=== PATIENT | male | born 2000 | race African-American/Black ===

== ENCOUNTER 2024-11-12 11:19 | Inpatient (IN) | payer OTHER, SELFPAY ==
[~2024-11-12] VITALS: Ht 172.7 cm; Wt 70.9 kg
[2024-11-12] MEDS ORDERED: LORazepam 2 MG/ML 1ML VIAL As Ordered ONE (11:25)
[2024-11-12] MEDS: LORazepam 2 MG/ML 1ML VIAL IV STA (11:26)
[2024-11-12] MEDS: NS (Normal Saline) 0.9% 1,000 ML IV ONE ×2 (11:33→12:54)
[2024-11-12] MEDS: levETIRAcetam INJection 1,000 MG in D5W 100 ML IV ONE (11:33)
[2024-11-12 11:58] LABS: BASO # 0.1 10^3/uL (0.0-0.2); BASO % 0.5 % (0.0-1.0); EOS # 0.2 10^3/uL (0.0-0.5); EOS % 0.9 % (0.0-3.0); LYMPH # 5.6 10^3/uL (1.5-5.0); LYMPH % 29.1 % (24.0-44.0); MEAN CORPUSCULAR HEMOGLOBIN 30.7 pg (27.0-33.0); MEAN CORPUSCULAR VOLUME 102.5 fl (80.0-96.0); MONO # 1.4 10^3/uL (0.0-0.8); MONO % 7.5 % (2.0-8.0); NEUTROPHILS # 11.1 10^3/uL (1.5-8.5); NEUTROPHILS % 58.3 % (36.0-66.0); PLATELET COUNT, AUTOMATED 261 10^3/uL (150-450); RED BLOOD COUNT 4.88 10^6/uL (4.30-6.10); WHITE BLOOD COUNT 19.1 10^3/uL (4.0-10.0)
[2024-11-12 11:58] LABS: ABG STANDARD HCO3 6.9 MMOL/L. (22.0-26.0)
[2024-11-12 11:59] LABS: ABG BASE EXCESS -25.7 (-2.0-2.0); ABG HCO3 6.5 MMOL/L (22.0-26.0); ABG O2 SATURATION 98.9 % (95.0-99.0); ABG PARTIAL PRESSURE CO2 33.9 mmHg (35.0-45.0); ABG PARTIAL PRESSURE O2 232.1 mmHg (75.0-100.0); ABG TOTAL CO2 7.6 MMOL/L (22.0-29.0)
[2024-11-12 12:00] LABS: ABG pH (ARTERIAL) 6.903 UNITS (7.350-7.450)
[2024-11-12 12:12] LABS: ALBUMIN 4.4 G/DL (3.2-5.2); ALKALINE PHOSPHATASE 127 U/L (40-129); ALT/SGPT 12 U/L (7.0-40); AST/SGOT 20 U/L (<34); BILIRUBIN,DIRECT < 0.1 MG/DL (<0.4); BILIRUBIN,TOTAL 0.2 MG/DL (0.3-1.2); BLOOD UREA NITROGEN 15 MG/DL (9-23); CALCIUM LEVEL 10.9 MG/DL (8.5-10.1); CARBON DIOXIDE LEVEL 13 MMOL/L (20-31); CHLORIDE LEVEL 111 MMOL/L (98-107); GLOMERULAR FILTRATION RATE 55.9 (>60); GLUCOSE, FASTING 147 MG/DL (60-100); POTASSIUM SERUM 5.3 MMOL/L (3.5-5.1); SODIUM LEVEL 155 MMOL/L (136-145); TOTAL PROTEIN 8.9 G/DL (5.7-8.2)
[2024-11-12 13:33] LABS: ABG BASE EXCESS -4.5 (-2.0-2.0); ABG HCO3 21.9 MMOL/L (22.0-26.0); ABG O2 SATURATION 97.7 % (95.0-99.0); ABG PARTIAL PRESSURE CO2 45.4 mmHg (35.0-45.0); ABG STANDARD HCO3 20.8 MMOL/L. (22.0-26.0); ABG TOTAL CO2 23.3 MMOL/L (22.0-29.0); ABG pH (ARTERIAL) 7.301 UNITS (7.350-7.450)
[2024-11-12] MEDS ORDERED: ALBUTEROL SULFATE 2.5MG/0.5ML INH NEB SOLN NEB PRN (13:40)
[2024-11-12 13:54] LABS: VENOUS BASE EXCESS -4.8 (-2.0-2.0); VENOUS HCO3 23.5 MMOL/L (23.0-27.0); VENOUS O2 SATURATION 66.4 % (60.0-80.0); VENOUS PARTIAL PRESSURE CO2 57.1 mmHg (38.0-50.0); VENOUS PARTIAL PRESSURE O2 38.4 mmHg (30.0-50.0); VENOUS PH 7.232 UNITS (7.330-7.430); VENOUS STANDARD HCO3 19.9 MMOL/L; VENOUS TOTAL CO2 25.2 MMOL/L (24.0-28.0)
[2024-11-12] MEDS ORDERED: KEPP1SOL PO (14:13)
[2024-11-12] MEDS ORDERED: HOME MED LIST COMPLETE! XX SCH (14:15)
[2024-11-12] MEDS: ACETAMINOPHEN *IV* 1,000 MG in IV 1 EA IV PRN (14:45)
[2024-11-12 15:02] LABS: PROLACTIN 19.36 NG/ML (2.1-17.7)
[2024-11-12 15:52] LABS: BLOOD UREA NITROGEN 16 MG/DL (9-23); CALCIUM LEVEL 8.2 MG/DL (8.5-10.1); CARBON DIOXIDE LEVEL 24 MMOL/L (20-31); CHLORIDE LEVEL 111 MMOL/L (98-107); CREATININE FOR GFR 1.26 MG/DL (0.70-1.30); GLOMERULAR FILTRATION RATE > 60.0 (>60); GLUCOSE, FASTING 87 MG/DL (60-100); POTASSIUM SERUM 4.4 MMOL/L (3.5-5.1); SODIUM LEVEL 144 MMOL/L (136-145)
[2024-11-12 16:30] VITALS: BP 114/65; TEMP 99.1; O2SAT 100
[2024-11-12 16:54] VITALS: BP 122/76; O2SAT 100
[2024-11-12 20:00] VITALS: BP 123/56; TEMP 99.1; O2SAT 92
[2024-11-12 20:04] VITALS: O2SAT 85
[2024-11-12] MEDS ORDERED: HEPARIN SOD (PORCINE) 5000UNITS/ML 1ML VIAL/SYRINGE SC SCH (22:00)
[2024-11-12] MEDS ORDERED: levETIRAcetam INJection 1,000 MG in D5W 100 ML IV SCH (23:00)
== END 2024-11-12 22:20 | disposition left against medical advice (07) | DRG 53 ==
LOC: M ED 11:19 → EDBD 11:19 → M ED INP 13:38 → M ICU 16:47
PROVIDERS: ADMIT Internal Medicine Pulmonary Disease; ATTEND Internal Medicine Pulmonary Disease
DX: G40.401 Other generalized epilepsy and epileptic syndromes, not intractable, with status epilepticus (principal); G93.41 Metabolic encephalopathy; N17.9 Acute kidney failure, unspecified; E87.20 Acidosis, unspecified; E87.0 Hyperosmolality and hypernatremia; E87.5 Hyperkalemia; Z91.148 Patient's other noncompliance with medication regimen for other reason; F12.90 Cannabis use, unspecified, uncomplicated; F17.210 Nicotine dependence, cigarettes, uncomplicated

== ENCOUNTER 2024-12-09 14:57 | Emergency (ER) | payer MEDICAID, OTHER, SELFPAY ==
[~2024-12-09] VITALS: Ht 175.3 cm; Wt 67.9 kg
[~2024-12-09 14:57] MED LIST: KEPP1SOL PO
[2024-12-09 15:27] LABS: VENOUS BASE EXCESS -26.8 (-2.0-2.0); VENOUS HCO3 8.8 MMOL/L (23.0-27.0); VENOUS O2 SATURATION 69.9 % (60.0-80.0); VENOUS PARTIAL PRESSURE CO2 59.3 mmHg (38.0-50.0); VENOUS PH 6.789 UNITS (7.330-7.430); VENOUS STANDARD HCO3 6.5 MMOL/L; VENOUS TOTAL CO2 10.6 MMOL/L (24.0-28.0)
[2024-12-09 15:37] LABS: BASO % 0.2 % (0.0-1.0); EOS # 0.1 10^3/uL (0.0-0.5); EOS % 0.3 % (0.0-3.0); HEMATOCRIT 47.7 % (42.0-52.0); HEMOGLOBIN 14.3 g/dl (13.5-17.5); LYMPH # 4.1 10^3/uL (1.5-5.0); LYMPH % 24.3 % (24.0-44.0); MONO # 1.2 10^3/uL (0.0-0.8); MONO % 7.2 % (2.0-8.0); NEUTROPHILS # 11.2 10^3/uL (1.5-8.5); NEUTROPHILS % 66.9 % (36.0-66.0); PLATELET COUNT, AUTOMATED 183 10^3/uL (150-450); RED BLOOD COUNT 4.77 10^6/uL (4.30-6.10); WHITE BLOOD COUNT 16.8 10^3/uL (4.0-10.0)
[2024-12-09] MEDS: levETIRAcetam INJection 1,500 MG in D5W 100 ML IV ONE (15:40)
[2024-12-09] MEDS ORDERED: LORazepam 2 MG/ML 1ML VIAL IV PRN (15:45)
[2024-12-09 15:57] LABS: AMPHETAMINES LEVEL URINE NEGATIVE (NEGATIVE); BARBITURATES URINE NEGATIVE (NEGATIVE); BENZODIAZEPINES URINE NEGATIVE (NEGATIVE); COCAINE METABOLITE URINE NEGATIVE (NEGATIVE); METHADONE URINE NEGATIVE (NEGATIVE); OPIATES URINE NEGATIVE (NEGATIVE); PHENCYCLIDINE URINE NEGATIVE (NEGATIVE)
[2024-12-09] MEDS: NS (Normal Saline) 0.9% 1,000 ML IV ONE (15:57)
[2024-12-09 15:58] LABS: ETHYL ALCOHOL (ETHANOL) 0.007 % (0.000-0.010)
[2024-12-09 16:00] LABS: CANNABINOIDS URINE POSITIVE (NEGATIVE)
[2024-12-09 16:04] LABS: ALBUMIN 4.2 G/DL (3.2-5.2); ALKALINE PHOSPHATASE 106 U/L (40-129); ALT/SGPT 11 U/L (7.0-40); AST/SGOT 14 U/L (<34); BILIRUBIN,DIRECT 0.1 MG/DL (<0.4); BILIRUBIN,TOTAL 0.4 MG/DL (0.3-1.2); BLOOD UREA NITROGEN 16 MG/DL (9-23); CALCIUM LEVEL 9.4 MG/DL (8.5-10.1); CARBON DIOXIDE LEVEL 12 MMOL/L (20-31); CHLORIDE LEVEL 105 MMOL/L (98-107); CREATININE FOR GFR 1.25 MG/DL (0.70-1.30); GLOMERULAR FILTRATION RATE > 60.0 (>60); GLUCOSE, FASTING 112 MG/DL (60-100); MAGNESIUM LEVEL 2.4 MG/DL (1.8-2.4); PHOSPHORUS LEVEL 3.3 MG/DL (2.5-4.9); POTASSIUM SERUM 4.3 MMOL/L (3.5-5.1); SODIUM LEVEL 145 MMOL/L (136-145); TOTAL PROTEIN 8.8 G/DL (5.7-8.2)
[2024-12-09] MEDS: NS (Normal Saline) 0.9% 1,000 ML in IV 1 EA IV ONE (16:20)
[2024-12-09] MEDS ORDERED: LEVE15SO PO (18:14)
[2024-12-09 18:29] LABS: VENOUS HCO3 22.5 MMOL/L (23.0-27.0); VENOUS O2 SATURATION 80.3 % (60.0-80.0); VENOUS PARTIAL PRESSURE CO2 46.5 mmHg (38.0-50.0); VENOUS PARTIAL PRESSURE O2 46.7 mmHg (30.0-50.0); VENOUS PH 7.303 UNITS (7.330-7.430); VENOUS STANDARD HCO3 20.8 MMOL/L; VENOUS TOTAL CO2 23.9 MMOL/L (24.0-28.0)
[2024-12-09] MEDS ORDERED: KEPP1TAB2 PO (19:17)
[2024-12-09 19:34] VITALS: BP 118/69; TEMP 97.9; O2SAT 100
== END 2024-12-09 19:35 | disposition left against medical advice (07) ==
LOC: M ED 14:57 → EDBD 14:57 → M ED 19:35
DX: G40.909 Epilepsy, unspecified, not intractable, without status epilepticus (principal); F12.10 Cannabis abuse, uncomplicated; F17.290 Nicotine dependence, other tobacco product, uncomplicated; Z79.899 Other long term (current) drug therapy; Z53.9 Procedure and treatment not carried out, unspecified reason
CPT/HCPCS: 80048; 80076; 80177; 80307; 82077; 82803; 83605; 83735; 84100; 85025; 93041; 94760; 96365; 96366; 99285; J1953

== ENCOUNTER 2024-12-11 02:30 | Emergency (ER) | payer MEDICAID, OTHER ==
[~2024-12-11] VITALS: Ht 175.3 cm; Wt 67.9 kg
[~2024-12-11 02:30] MED LIST changes: +KEPP1TAB2 PO; +LEVE15SO PO
[2024-12-11 03:20] LABS: BASO % 0.4 % (0.0-1.0); EOS # 0.1 10^3/uL (0.0-0.5); EOS % 2.8 % (0.0-3.0); HEMATOCRIT 38.7 % (42.0-52.0); HEMOGLOBIN 12.5 g/dl (13.5-17.5); LYMPH # 1.7 10^3/uL (1.5-5.0); LYMPH % 36.3 % (24.0-44.0); MEAN CORPUSCULAR HEMOGLOBIN 29.9 pg (27.0-33.0); MEAN CORPUSCULAR HGB CONC 32.3 g/dl (32.0-36.5); MEAN CORPUSCULAR VOLUME 92.6 fl (80.0-96.0); MONO # 0.6 10^3/uL (0.0-0.8); MONO % 12.6 % (2.0-8.0); NEUTROPHILS # 2.2 10^3/uL (1.5-8.5); NEUTROPHILS % 47.5 % (36.0-66.0); PLATELET COUNT, AUTOMATED 133 10^3/uL (150-450); RED BLOOD COUNT 4.18 10^6/uL (4.30-6.10); WHITE BLOOD COUNT 4.7 10^3/uL (4.0-10.0)
[2024-12-11 03:30] LABS: BLOOD UREA NITROGEN 13 MG/DL (9-23); CALCIUM LEVEL 8.7 MG/DL (8.5-10.1); CARBON DIOXIDE LEVEL 28 MMOL/L (20-31); CHLORIDE LEVEL 106 MMOL/L (98-107); CK-MB VALUE MASS < 1.0 NG/ML (<3.6); CREATININE FOR GFR 1.16 MG/DL (0.70-1.30); GLOMERULAR FILTRATION RATE > 60.0 (>60); GLUCOSE, FASTING 97 MG/DL (60-100); POTASSIUM SERUM 3.9 MMOL/L (3.5-5.1); SODIUM LEVEL 144 MMOL/L (136-145)
[2024-12-11 03:31] LABS: CPK CREATINE PHOSPHOKINASE 416 U/L (46-171); MB/CK RELATIVE INDEX 0.24 (< OR =4)
[2024-12-11] MEDS ORDERED: levETIRAcetam INJection 1,000 MG in IV 1 EA IV ONE (07:30)
[2024-12-11] MEDS: levETIRAcetam INJection 500 MG in DEXTROSE 5% (D5W) MINI-BAG PLU 100 ML IV SCH (08:02)
[2024-12-11 08:33] LABS: CK-MB VALUE MASS < 1.0 NG/ML (<3.6)
[2024-12-11 08:34] LABS: CPK CREATINE PHOSPHOKINASE 396 U/L (46-171); MB/CK RELATIVE INDEX 0.25 (< OR =4)
[2024-12-11 09:09] LABS: AMPHETAMINES LEVEL URINE NEGATIVE (NEGATIVE); BARBITURATES URINE NEGATIVE (NEGATIVE); BENZODIAZEPINES URINE NEGATIVE (NEGATIVE); COCAINE METABOLITE URINE NEGATIVE (NEGATIVE); METHADONE URINE NEGATIVE (NEGATIVE); OPIATES URINE NEGATIVE (NEGATIVE); PHENCYCLIDINE URINE NEGATIVE (NEGATIVE)
[2024-12-11 09:10] LABS: CANNABINOIDS URINE POSITIVE (NEGATIVE)
[2024-12-11] MEDS ORDERED: KEPP1TAB2 PO (10:10)
[2024-12-11 11:00] VITALS: BP 119/75; TEMP 98.1; O2SAT 100
== END 2024-12-11 12:04 | disposition home or self-care (01) ==
LOC: M ED 02:30 → EDBD 02:30 → M ED 12:04
DX: R07.9 Chest pain, unspecified (principal); G40.909 Epilepsy, unspecified, not intractable, without status epilepticus; I45.10 Unspecified right bundle-branch block; F41.9 Anxiety disorder, unspecified; F19.10 Other psychoactive substance abuse, uncomplicated; Z79.899 Other long term (current) drug therapy
CPT/HCPCS: 71045; 80048; 80177; 80307; 82550; 82553; 83605; 84484; 85025; 93005; 93041; 94760; 96360; 99285; J1953

== ENCOUNTER 2024-12-20 18:53 | Emergency (ER) | payer OTHER, SELFPAY ==
[~2024-12-20] VITALS: Ht 185.4 cm; Wt 60.9 kg
[2024-12-20 20:01] LABS: HEMATOCRIT 43.4 % (42.0-52.0); HEMOGLOBIN 14.7 g/dl (13.5-17.5); MEAN CORPUSCULAR HEMOGLOBIN 30.2 pg (27.0-33.0); MEAN CORPUSCULAR HGB CONC 33.9 g/dl (32.0-36.5); MEAN CORPUSCULAR VOLUME 89.3 fl (80.0-96.0); PLATELET COUNT, AUTOMATED 205 10^3/uL (150-450); RED BLOOD COUNT 4.86 10^6/uL (4.30-6.10); WHITE BLOOD COUNT 7.8 10^3/uL (4.0-10.0)
[2024-12-20 20:27] LABS: ETHYL ALCOHOL (ETHANOL) < 0.003 % (0.000-0.010)
[2024-12-20 20:28] LABS: SALICYLATE LEVEL < 3.0 MG/DL (<30)
[2024-12-20 20:29] LABS: ALBUMIN 4.5 G/DL (3.2-5.2); ALKALINE PHOSPHATASE 97 U/L (40-129); ALT/SGPT 16 U/L (7.0-40); AST/SGOT 25 U/L (<34); BILIRUBIN,DIRECT 0.3 MG/DL (<0.4); BILIRUBIN,TOTAL 0.8 MG/DL (0.3-1.2); BLOOD UREA NITROGEN 12 MG/DL (9-23); CALCIUM LEVEL 9.7 MG/DL (8.5-10.1); CARBON DIOXIDE LEVEL 28 MMOL/L (20-31); CHLORIDE LEVEL 103 MMOL/L (98-107); CREATININE FOR GFR 1.01 MG/DL (0.70-1.30); GLOMERULAR FILTRATION RATE > 60.0 (>60); GLUCOSE, FASTING 110 MG/DL (60-100); POTASSIUM SERUM 3.7 MMOL/L (3.5-5.1); SODIUM LEVEL 140 MMOL/L (136-145); TOTAL PROTEIN 8.7 G/DL (5.7-8.2)
[2024-12-20 20:30] LABS: THYROID STIMULATING HORMONE 0.865 uIU/ML (0.55-4.78)
[2024-12-20 20:36] LABS: AMPHETAMINES LEVEL URINE NEGATIVE (NEGATIVE); BARBITURATES URINE NEGATIVE (NEGATIVE); BENZODIAZEPINES URINE NEGATIVE (NEGATIVE); COCAINE METABOLITE URINE NEGATIVE (NEGATIVE); METHADONE URINE NEGATIVE (NEGATIVE); OPIATES URINE NEGATIVE (NEGATIVE); PHENCYCLIDINE URINE NEGATIVE (NEGATIVE)
[2024-12-20 20:40] LABS: CANNABINOIDS URINE POSITIVE (NEGATIVE)
[2024-12-20] MEDS ORDERED: levETIRAcetam 250MG TABLET (KEPPRA) PO ONE (21:05)
[2024-12-20] MEDS: levETIRAcetam ORAL SOLUTION 500MG/5ML UDC PO STA (21:41)
[2024-12-20 21:59] VITALS: BP 160/89; TEMP 97.7; O2SAT 100
== END 2024-12-20 22:10 | disposition home or self-care (01) ==
LOC: EDBD 18:53 → M ED 18:53
DX: F43.0 Acute stress reaction (principal); G40.909 Epilepsy, unspecified, not intractable, without status epilepticus; Z76.0 Encounter for issue of repeat prescription; F17.200 Nicotine dependence, unspecified, uncomplicated; Z91.148 Patient's other noncompliance with medication regimen for other reason; Z79.899 Other long term (current) drug therapy

== ENCOUNTER 2024-12-22 07:52 | Emergency (ER) | payer SELFPAY ==
[~2024-12-22] VITALS: Ht 172.7 cm; Wt 60.9 kg
[2024-12-22 09:17] LABS: HEMATOCRIT 41.4 % (42.0-52.0); HEMOGLOBIN 13.5 g/dl (13.5-17.5); MEAN CORPUSCULAR HEMOGLOBIN 29.7 pg (27.0-33.0); MEAN CORPUSCULAR HGB CONC 32.6 g/dl (32.0-36.5); PLATELET COUNT, AUTOMATED 203 10^3/uL (150-450); RED BLOOD COUNT 4.55 10^6/uL (4.30-6.10); WHITE BLOOD COUNT 7.9 10^3/uL (4.0-10.0)
[2024-12-22 09:24] LABS: AMPHETAMINES LEVEL URINE NEGATIVE (NEGATIVE); BARBITURATES URINE NEGATIVE (NEGATIVE); BENZODIAZEPINES URINE NEGATIVE (NEGATIVE); COCAINE METABOLITE URINE NEGATIVE (NEGATIVE); METHADONE URINE NEGATIVE (NEGATIVE); OPIATES URINE NEGATIVE (NEGATIVE); PHENCYCLIDINE URINE NEGATIVE (NEGATIVE)
[2024-12-22 09:27] LABS: ETHYL ALCOHOL (ETHANOL) < 0.003 % (0.000-0.010)
[2024-12-22 09:29] LABS: SALICYLATE LEVEL < 3.0 MG/DL (<30)
[2024-12-22 09:33] LABS: ALKALINE PHOSPHATASE 88 U/L (40-129); ALT/SGPT 13 U/L (7.0-40); AST/SGOT 24 U/L (<34); BILIRUBIN,DIRECT 0.3 MG/DL (<0.4); BILIRUBIN,TOTAL 0.8 MG/DL (0.3-1.2); BLOOD UREA NITROGEN 13 MG/DL (9-23); CALCIUM LEVEL 8.8 MG/DL (8.5-10.1); CANNABINOIDS URINE POSITIVE (NEGATIVE); CARBON DIOXIDE LEVEL 25 MMOL/L (20-31); CHLORIDE LEVEL 108 MMOL/L (98-107); CREATININE FOR GFR 1.03 MG/DL (0.70-1.30); GLOMERULAR FILTRATION RATE > 60.0 (>60); GLUCOSE, FASTING 102 MG/DL (60-100); POTASSIUM SERUM 3.9 MMOL/L (3.5-5.1); SODIUM LEVEL 143 MMOL/L (136-145); THYROID STIMULATING HORMONE 0.423 uIU/ML (0.55-4.78); TOTAL PROTEIN 7.7 G/DL (5.7-8.2)
[2024-12-22 14:08] VITALS: BP 135/80; TEMP 98; O2SAT 99
== END 2024-12-22 14:10 | disposition home or self-care (01) ==
LOC: EDBD 07:52 → M ED 07:52
DX: F43.22 Adjustment disorder with anxiety (principal); G40.909 Epilepsy, unspecified, not intractable, without status epilepticus; F17.200 Nicotine dependence, unspecified, uncomplicated; Z79.899 Other long term (current) drug therapy

== ENCOUNTER 2025-02-04 10:13 | Emergency (ER) | payer MEDICAID, SELFPAY ==
[~2025-02-04] VITALS: Ht 177.8 cm; Wt 74.2 kg
[2025-02-04 11:22] LABS: AMPHETAMINES LEVEL URINE NEGATIVE (NEGATIVE); BARBITURATES URINE NEGATIVE (NEGATIVE); BENZODIAZEPINES URINE NEGATIVE (NEGATIVE); COCAINE METABOLITE URINE NEGATIVE (NEGATIVE); METHADONE URINE NEGATIVE (NEGATIVE); PHENCYCLIDINE URINE NEGATIVE (NEGATIVE)
[2025-02-04] MEDS: NS (Normal Saline) 0.9% 1,000 ML IV ONE ×2 (11:22→13:54)
[2025-02-04 11:23] LABS: OPIATES URINE NEGATIVE (NEGATIVE)
[2025-02-04 11:24] LABS: CANNABINOIDS URINE POSITIVE (NEGATIVE)
[2025-02-04 16:30] VITALS: BP 118/61; O2SAT 95
[2025-02-04 16:44] VITALS: TEMP 97.7
== END 2025-02-04 17:00 | disposition home or self-care (01) ==
LOC: M ED 10:13
DX: G40.909 Epilepsy, unspecified, not intractable, without status epilepticus (principal); R00.0 Tachycardia, unspecified; I45.10 Unspecified right bundle-branch block; Z79.899 Other long term (current) drug therapy

== ENCOUNTER 2025-02-04 17:32 | Emergency (ER) | payer MEDICAID, SELFPAY ==
[~2025-02-04] VITALS: Ht 177.8 cm; Wt 74.2 kg
[2025-02-04 17:44] VITALS: TEMP 100.2
[2025-02-04] MEDS: levETIRAcetam INJection 1,000 MG in IV 1 EA IV ONE (17:59)
[2025-02-04 18:15] LABS: BASO % 0.2 % (0.0-1.0); EOS % 0.1 % (0.0-3.0); HEMATOCRIT 40.2 % (42.0-52.0); LYMPH % 6.1 % (24.0-44.0); MEAN CORPUSCULAR HEMOGLOBIN 29.3 pg (27.0-33.0); MEAN CORPUSCULAR HGB CONC 32.3 g/dl (32.0-36.5); MEAN CORPUSCULAR VOLUME 90.7 fl (80.0-96.0); MONO # 1.5 10^3/uL (0.0-0.8); MONO % 9.6 % (2.0-8.0); NEUTROPHILS # 13.2 10^3/uL (1.5-8.5); NEUTROPHILS % 82.9 % (36.0-66.0); PLATELET COUNT, AUTOMATED 157 10^3/uL (150-450); RED BLOOD COUNT 4.43 10^6/uL (4.30-6.10)
[2025-02-04 18:29] LABS: ALBUMIN 3.9 G/DL (3.2-5.2); BILIRUBIN,TOTAL 0.7 MG/DL (0.3-1.2); CALCIUM LEVEL 8.4 MG/DL (8.5-10.1); CREATININE FOR GFR 1.88 MG/DL (0.70-1.30); GLOMERULAR FILTRATION RATE 56.2 (>60); POTASSIUM SERUM 5.5 MMOL/L (3.5-5.1); TOTAL PROTEIN 7.8 G/DL (5.7-8.2)
[2025-02-04 18:31] VITALS: BP 117/65; O2SAT 98
== END 2025-02-04 18:49 | disposition left against medical advice (07) ==
LOC: M ED 17:32
DX: G40.909 Epilepsy, unspecified, not intractable, without status epilepticus (principal); Z79.899 Other long term (current) drug therapy; Z53.9 Procedure and treatment not carried out, unspecified reason
CPT/HCPCS: 36415; 70450; 80047; 80053; 80177; 80307; 85025; 87486; 87581; 87633; 87798; 93005; 96365; 99284; 99285; J1953

== ENCOUNTER 2025-03-02 00:23 | Emergency (ER) | payer MEDICAID, OTHER ==
[~2025-03-02] VITALS: Ht 185.4 cm; Wt 64.0 kg
[2025-03-02 01:43] LABS: HEMATOCRIT 40.4 % (42.0-52.0); HEMOGLOBIN 13.2 g/dl (13.5-17.5); MEAN CORPUSCULAR HEMOGLOBIN 29.5 pg (27.0-33.0); MEAN CORPUSCULAR HGB CONC 32.7 g/dl (32.0-36.5); MEAN CORPUSCULAR VOLUME 90.4 fl (80.0-96.0); PLATELET COUNT, AUTOMATED 185 10^3/uL (150-450); RED BLOOD COUNT 4.47 10^6/uL (4.30-6.10); WHITE BLOOD COUNT 5.4 10^3/uL (4.0-10.0)
[2025-03-02 01:47] LABS: AMPHETAMINES LEVEL URINE NEGATIVE (NEGATIVE); BARBITURATES URINE NEGATIVE (NEGATIVE); BENZODIAZEPINES URINE NEGATIVE (NEGATIVE); COCAINE METABOLITE URINE NEGATIVE (NEGATIVE); METHADONE URINE NEGATIVE (NEGATIVE); OPIATES URINE NEGATIVE (NEGATIVE); PHENCYCLIDINE URINE NEGATIVE (NEGATIVE)
[2025-03-02 01:49] LABS: ETHYL ALCOHOL (ETHANOL) < 0.003 % (0.000-0.010)
[2025-03-02 01:51] LABS: ALBUMIN 3.7 G/DL (3.2-5.2); ALKALINE PHOSPHATASE 84 U/L (40-129); ALT/SGPT 10 U/L (7.0-40); AST/SGOT 15 U/L (<34); BILIRUBIN,DIRECT 0.2 MG/DL (<0.4); BILIRUBIN,TOTAL 0.6 MG/DL (0.3-1.2); BLOOD UREA NITROGEN 17 MG/DL (9-23); CALCIUM LEVEL 8.5 MG/DL (8.5-10.1); CANNABINOIDS URINE POSITIVE (NEGATIVE); CARBON DIOXIDE LEVEL 29 MMOL/L (20-31); CHLORIDE LEVEL 106 MMOL/L (98-107); CREATININE FOR GFR 1.09 MG/DL (0.70-1.30); GLOMERULAR FILTRATION RATE > 90.0 (>60); GLUCOSE, FASTING 136 MG/DL (60-100); POTASSIUM SERUM 3.3 MMOL/L (3.5-5.1); SALICYLATE LEVEL < 3.0 MG/DL (<30); SODIUM LEVEL 145 MMOL/L (136-145); TOTAL PROTEIN 7.3 G/DL (5.7-8.2)
[2025-03-02 01:53] LABS: THYROID STIMULATING HORMONE 0.764 uIU/ML (0.55-4.78)
[2025-03-02] MEDS: LORazepam 0.5 MG TAB PO ONE (03:25)
[2025-03-02 04:21] VITALS: BP 152/86; TEMP 97.6; O2SAT 100
== END 2025-03-02 04:24 | disposition home or self-care (01) ==
LOC: M ED 00:23
DX: F41.9 Anxiety disorder, unspecified (principal); G40.909 Epilepsy, unspecified, not intractable, without status epilepticus; F17.200 Nicotine dependence, unspecified, uncomplicated; F12.10 Cannabis abuse, uncomplicated; Z79.899 Other long term (current) drug therapy

== ENCOUNTER 2025-03-04 08:40 | Emergency (ER) | payer OTHER ==
[~2025-03-04] VITALS: Ht 185.4 cm; Wt 66.0 kg
[2025-03-04] MEDS ORDERED: KEPP1SOL (08:55)
[2025-03-04 11:12] LABS: BASO % 0.3 % (0.0-1.0); EOS # 0.2 10^3/uL (0.0-0.5); EOS % 3.8 % (0.0-3.0); HEMATOCRIT 42.8 % (42.0-52.0); HEMOGLOBIN 13.6 g/dl (13.5-17.5); LYMPH # 1.8 10^3/uL (1.5-5.0); LYMPH % 30.7 % (24.0-44.0); MEAN CORPUSCULAR HEMOGLOBIN 29.2 pg (27.0-33.0); MEAN CORPUSCULAR HGB CONC 31.8 g/dl (32.0-36.5); MONO # 0.6 10^3/uL (0.0-0.8); MONO % 10.4 % (2.0-8.0); NEUTROPHILS # 3.1 10^3/uL (1.5-8.5); NEUTROPHILS % 54.3 % (36.0-66.0); PLATELET COUNT, AUTOMATED 180 10^3/uL (150-450); RED BLOOD COUNT 4.65 10^6/uL (4.30-6.10); WHITE BLOOD COUNT 5.8 10^3/uL (4.0-10.0)
[2025-03-04 11:30] VITALS: BP 154/95
[2025-03-04 11:41] LABS: BLOOD UREA NITROGEN 13 MG/DL (9-23); CALCIUM LEVEL 8.9 MG/DL (8.5-10.1); CARBON DIOXIDE LEVEL 29 MMOL/L (20-31); CHLORIDE LEVEL 106 MMOL/L (98-107); CK-MB VALUE MASS < 1.0 NG/ML (<3.6); CPK CREATINE PHOSPHOKINASE 230 U/L (46-171); CREATININE FOR GFR 0.91 MG/DL (0.70-1.30); GLOMERULAR FILTRATION RATE > 90.0 (>60); GLUCOSE, FASTING 93 MG/DL (60-100); MAGNESIUM LEVEL 1.7 MG/DL (1.8-2.4); MB/CK RELATIVE INDEX 0.43 (< OR =4); POTASSIUM SERUM 3.6 MMOL/L (3.5-5.1); SODIUM LEVEL 142 MMOL/L (136-145); THYROID STIMULATING HORMONE 0.861 uIU/ML (0.55-4.78)
[2025-03-04 11:42] LABS: FREE T4 1.23 NG/DL (0.89-1.76)
[2025-03-04 11:45] VITALS: TEMP 98.6; O2SAT 99
[2025-03-04] MEDS: MAGNESIUM OXIDE 400MG TAB (MAG-OX) PO ONE (11:48)
[2025-03-05] MEDS ORDERED: HOLTER MONITOR XX (10:11)
== END 2025-03-04 12:05 | disposition home or self-care (01) ==
LOC: EDBD 08:40 → M ED 08:40
DX: F41.9 Anxiety disorder, unspecified (principal); R00.0 Tachycardia, unspecified; I45.10 Unspecified right bundle-branch block; Z79.899 Other long term (current) drug therapy

== ENCOUNTER 2025-03-05 05:32 | Emergency (ER) | payer OTHER ==
[~2025-03-05] VITALS: Ht 185.4 cm; Wt 64.1 kg
[~2025-03-05 05:32] MED LIST changes: -HOLTER MONITOR XX
[2025-03-05 06:15] LABS: BASO % 0.5 % (0.0-1.0); EOS # 0.3 10^3/uL (0.0-0.5); EOS % 4.6 % (0.0-3.0); HEMATOCRIT 40.6 % (42.0-52.0); HEMOGLOBIN 12.9 g/dl (13.5-17.5); LYMPH # 1.6 10^3/uL (1.5-5.0); LYMPH % 26.6 % (24.0-44.0); MEAN CORPUSCULAR HEMOGLOBIN 29.2 pg (27.0-33.0); MEAN CORPUSCULAR HGB CONC 31.8 g/dl (32.0-36.5); MEAN CORPUSCULAR VOLUME 91.9 fl (80.0-96.0); MONO # 0.8 10^3/uL (0.0-0.8); MONO % 13.7 % (2.0-8.0); NEUTROPHILS # 3.2 10^3/uL (1.5-8.5); NEUTROPHILS % 54.3 % (36.0-66.0); PLATELET COUNT, AUTOMATED 167 10^3/uL (150-450); RED BLOOD COUNT 4.42 10^6/uL (4.30-6.10); WHITE BLOOD COUNT 5.9 10^3/uL (4.0-10.0)
[2025-03-05 06:40] LABS: CK-MB VALUE MASS < 1.0 NG/ML (<3.6)
[2025-03-05 06:41] LABS: BLOOD UREA NITROGEN 12 MG/DL (9-23); CALCIUM LEVEL 8.7 MG/DL (8.5-10.1); CARBON DIOXIDE LEVEL 28 MMOL/L (20-31); CHLORIDE LEVEL 106 MMOL/L (98-107); CREATININE FOR GFR 1.11 MG/DL (0.70-1.30); GLOMERULAR FILTRATION RATE > 90.0 (>60); GLUCOSE, FASTING 97 MG/DL (60-100); POTASSIUM SERUM 3.5 MMOL/L (3.5-5.1); SODIUM LEVEL 143 MMOL/L (136-145)
[2025-03-05 06:45] LABS: CPK CREATINE PHOSPHOKINASE 227 U/L (46-171); MB/CK RELATIVE INDEX 0.44 (< OR =4)
[2025-03-05 07:55] LABS: THYROID STIMULATING HORMONE 0.819 uIU/ML (0.55-4.78)
[2025-03-05] MEDS ORDERED: ISOVUE-370 76% 100ML VIAL As Ordered ONE (07:55)
[2025-03-05 07:56] LABS: FREE T4 1.28 NG/DL (0.89-1.76)
[2025-03-05] MEDS ORDERED: HOLTER MONITOR XX (10:11)
[2025-03-05 10:45] VITALS: BP 137/93; TEMP 98.2; O2SAT 100
== END 2025-03-05 10:51 | disposition home or self-care (01) ==
LOC: EDSEX 05:32 → M ED 05:32 → EDBD 05:32 → M ED 10:51
DX: R07.9 Chest pain, unspecified (principal); R00.2 Palpitations; I51.7 Cardiomegaly; F17.200 Nicotine dependence, unspecified, uncomplicated; R94.31 Abnormal electrocardiogram [ECG] [EKG]
CPT/HCPCS: 36415; 71045; 71275; 80048; 82550; 82553; 83880; 84439; 84443; 84484; 85025; 93005; 93041; 94760; 99285; Q9967

== ENCOUNTER 2025-03-05 14:01 | Emergency (ER) | payer OTHER ==
[~2025-03-05] VITALS: Ht 185.4 cm; Wt 65.5 kg
[~2025-03-05 14:01] MED LIST changes: +HOLTER MONITOR XX
== END 2025-03-05 14:07 | disposition left against medical advice (07) ==
LOC: M ED 14:01
DX: Z53.21 Procedure and treatment not carried out due to patient leaving prior to being seen by health care provider (principal)

== ENCOUNTER → 2025-03-05 | Outpatient (CLI) | payer OTHER ==
[~2025-03-05] MED LIST changes: +HOLTER MONITOR XX; +KEPP1SOL
== END ==
LOC: M EKG 10:59
PROVIDERS: ATTEND Emergency Medicine
DX: R00.2 Palpitations (principal); Z53.9 Procedure and treatment not carried out, unspecified reason

== ENCOUNTER 2025-03-23 16:12 | Emergency (ER) | payer OTHER ==
[~2025-03-23] VITALS: Ht 185.4 cm; Wt 62.8 kg
[2025-03-23] MEDS: LIDOCAINE 1% MDV 20ML VIAL SC ONE (20:48)
[2025-03-23] MEDS ORDERED: OXYC1TAB23 PO (21:11)
[2025-03-23] MEDS ORDERED: DOXY-442 PO (21:11)
[2025-03-23 21:22] VITALS: BP 112/78; TEMP 99; O2SAT 99
== END 2025-03-23 21:24 | disposition home or self-care (01) ==
LOC: M ED 16:12
DX: L05.91 Pilonidal cyst without abscess (principal); F41.9 Anxiety disorder, unspecified; Z79.2 Long term (current) use of antibiotics; Z79.899 Other long term (current) drug therapy

== ENCOUNTER 2025-07-27 18:06 | Inpatient (IN) | payer MEDICAID, OTHER ==
[~2025-07-27] VITALS: Ht 185.4 cm; Wt 67.4 kg
[2025-07-27 08:22] VITALS: BP 120/72; TEMP 99.1; O2SAT 100
[~2025-07-27 18:06] MED LIST changes: +DOXY-442 PO; +HYDR-3363 PO; +KEPP10002 PO; +LEVE750T5 PO; +OXYC1TAB23 PO
[2025-07-27 19:21] LABS: BASO # 0.0 10^3/uL (0.0-0.2); BASO % 0.3 % (0.0-1.0); EOS # 0.0 10^3/uL (0.0-0.5); EOS % 0.6 % (0.0-3.0); LYMPH # 0.9 10^3/uL (1.5-5.0); LYMPH % 14.0 % (24.0-44.0); MONO # 0.9 10^3/uL (0.0-0.8); MONO % 14.2 % (2.0-8.0); NEUTROPHILS # 4.4 10^3/uL (1.5-8.5); NEUTROPHILS % 70.1 % (36.0-66.0); PLATELET COUNT, AUTOMATED 164 10^3/uL (150-450)
[2025-07-27 19:37] LABS: AMPHETAMINES LEVEL URINE NEGATIVE (NEGATIVE); BARBITURATES URINE NEGATIVE (NEGATIVE); COCAINE METABOLITE URINE NEGATIVE (NEGATIVE)
[2025-07-27 19:38] LABS: BENZODIAZEPINES URINE NEGATIVE (NEGATIVE); CANNABINOIDS URINE POSITIVE (NEGATIVE); METHADONE URINE NEGATIVE (NEGATIVE); OPIATES URINE NEGATIVE (NEGATIVE); PHENCYCLIDINE URINE NEGATIVE (NEGATIVE)
[2025-07-27 19:40] LABS: CALCIUM LEVEL 8.7 MG/DL (8.5-10.1); CARBON DIOXIDE LEVEL 28 MMOL/L (20-31); CHLORIDE LEVEL 106 MMOL/L (98-107); CREATININE FOR GFR 1.03 MG/DL (0.70-1.30); GLOMERULAR FILTRATION RATE > 90.0 (>60); POTASSIUM SERUM 4.0 MMOL/L (3.5-5.1); SODIUM LEVEL 144 MMOL/L (136-145)
[2025-07-27 20:30] LABS: ETHYL ALCOHOL (ETHANOL) < 0.003 % (0.000-0.010)
[2025-07-27 20:32] LABS: SALICYLATE LEVEL < 3.0 MG/DL (<30)
[2025-07-27 20:48] LABS: CPK CREATINE PHOSPHOKINASE 20944 U/L (46-171)
[2025-07-27] MEDS: NS (Normal Saline) 0.9% 1,000 ML IV ONE (21:54)
[2025-07-27] MEDS ORDERED: NS (Normal Saline) 0.9% 1,000 ML IV SCH (22:00)
[2025-07-27] MEDS ORDERED: HOME MED LIST COMPLETE! XX SCH (23:00)
[2025-07-28] MEDS: NS (Normal Saline) 0.9% 1,000 ML IV SCH
[2025-07-28 01:42] LABS: PHOSPHORUS LEVEL 4.1 MG/DL (2.5-4.9)
[2025-07-28 01:50] VITALS: BP 157/84; TEMP 98.5; O2SAT 99
[2025-07-28 01:54] LABS: CPK CREATINE PHOSPHOKINASE 16716.0 U/L (46-171)
[2025-07-28 04:00] VITALS: BP 116/60; TEMP 97.4; O2SAT 96
[2025-07-28 07:21] LABS: CALCIUM LEVEL 8.2 MG/DL (8.5-10.1); CARBON DIOXIDE LEVEL 28 MMOL/L (20-31); CHLORIDE LEVEL 109 MMOL/L (98-107); CREATININE FOR GFR 1.00 MG/DL (0.70-1.30); GLOMERULAR FILTRATION RATE > 90.0 (>60); MAGNESIUM LEVEL 1.8 MG/DL (1.8-2.4); PHOSPHORUS LEVEL 4.0 MG/DL (2.5-4.9); POTASSIUM SERUM 4.0 MMOL/L (3.5-5.1); SODIUM LEVEL 146 MMOL/L (136-145)
[2025-07-28 07:34] LABS: CPK CREATINE PHOSPHOKINASE 15132 U/L (46-171)
[2025-07-28 07:45] VITALS: BP 120/72; TEMP 99.1; O2SAT 100
[2025-07-28 07:53] LABS: PLATELET COUNT, AUTOMATED 132 10^3/uL (150-450)
[2025-07-28 08:30] LABS: ALT/SGPT 66 U/L (7.0-40); AST/SGOT 260 U/L (<34)
[2025-07-28] MEDS: ENOXAPARIN 40 MG/0.4 ML SYRINGE (J1650 PER 10MG) SC SCH (08:53)
[2025-07-28 10:45] LABS: APPEARANCE, URINE CLEAR (CLEAR); BACTERIA, URINE AUTO 1+ (NEGATIVE); BILIRUBIN, URINE AUTO NEGATIVE (NEGATIVE); BLOOD, URINE BLOOD 1+ (NEGATIVE); GLUCOSE, URINE (UA) AUTO NEGATIVE (NEGATIVE); KETONE, URINE AUTO NEGATIVE (NEGATIVE); LEUKOCYTE ESTERASE, URINE AUTO NEGATIVE (NEGATIVE); NITRITE, URINE AUTO NEGATIVE (NEGATIVE); PROTEIN, URINE AUTO NEGATIVE (NEGATIVE); RBC, URINE AUTO 2 /HPF (0-3); SPECIFIC GRAVITY URINE AUTO 1.004 (1.002-1.035); SQUAMOUS EPITHELIAL CELL UR AU 0 /HPF (0-6); UROBILINOGEN, URINE AUTO 0.2 mg/dL (0.0-2.0); WBC, URINE AUTO 3 /HPF (0-3)
[2025-07-28 14:10] LABS: CK-MB VALUE MASS 1.0 NG/ML (<3.6)
[2025-07-28 14:23] LABS: CPK CREATINE PHOSPHOKINASE 13889 U/L (46-171); MB/CK RELATIVE INDEX 0.00 (< OR =4)
[2025-07-28] MEDS: SODIUM CHLORIDE 23.4% INJ 40.8 MEQ in STERILE WATER LITER BAG 1,050 ML IV SCH (14:34)
[2025-07-28 14:40] VITALS: BP 120/73; TEMP 98.1; O2SAT 100
[2025-07-28] MEDS: NICOTINE 21 MG/24 HR 1 EA TRANSDERMAL TD SCH (16:12)
[2025-07-28 18:58] LABS: CALCIUM LEVEL 8.5 MG/DL (8.5-10.1); CARBON DIOXIDE LEVEL 30 MMOL/L (20-31); CHLORIDE LEVEL 108 MMOL/L (98-107); CREATININE FOR GFR 1.04 MG/DL (0.70-1.30); GLOMERULAR FILTRATION RATE > 90.0 (>60); POTASSIUM SERUM 4.1 MMOL/L (3.5-5.1); SODIUM LEVEL 147 MMOL/L (136-145)
[2025-07-28 21:13] VITALS: BP 119/70; TEMP 98.3; O2SAT 100
[2025-07-28 22:41] LABS: CK-MB VALUE MASS < 1.0 NG/ML (<3.6)
[2025-07-28 22:42] LABS: CALCIUM LEVEL 8.2 MG/DL (8.5-10.1); CARBON DIOXIDE LEVEL 30 MMOL/L (20-31); CHLORIDE LEVEL 107 MMOL/L (98-107); CREATININE FOR GFR 1.07 MG/DL (0.70-1.30); GLOMERULAR FILTRATION RATE > 90.0 (>60); POTASSIUM SERUM 4.4 MMOL/L (3.5-5.1); SODIUM LEVEL 146 MMOL/L (136-145)
[2025-07-28 22:54] LABS: CPK CREATINE PHOSPHOKINASE 10628 U/L (46-171)
[2025-07-29 02:43] LABS: CALCIUM LEVEL 8.3 MG/DL (8.5-10.1); CARBON DIOXIDE LEVEL 30.0 MMOL/L (20-31); CHLORIDE LEVEL 107.0 MMOL/L (98-107); CREATININE FOR GFR 1.15 MG/DL (0.70-1.30); GLOMERULAR FILTRATION RATE 89.5 (>60); POTASSIUM SERUM 4.3 MMOL/L (3.5-5.1); SODIUM LEVEL 145.0 MMOL/L (136-145)
[2025-07-29 04:00] VITALS: BP 131/75; TEMP 98.3; O2SAT 98
[2025-07-29] MEDS: NS 0.45% 1,000 ML IV SCH (05:34)
[2025-07-29 06:24] LABS: PLATELET COUNT, AUTOMATED 145 10^3/uL (150-450)
[2025-07-29 06:48] LABS: ALT/SGPT 59 U/L (7.0-40); AST/SGOT 170 U/L (<34); CALCIUM LEVEL 8.6 MG/DL (8.5-10.1); CARBON DIOXIDE LEVEL 31 MMOL/L (20-31); CHLORIDE LEVEL 105 MMOL/L (98-107); CREATININE FOR GFR 1.10 MG/DL (0.70-1.30); GLOMERULAR FILTRATION RATE > 90.0 (>60); MAGNESIUM LEVEL 1.7 MG/DL (1.8-2.4); POTASSIUM SERUM 3.9 MMOL/L (3.5-5.1); SODIUM LEVEL 143 MMOL/L (136-145)
[2025-07-29] MEDS: NICOTINE 21 MG/24 HR 1 EA TRANSDERMAL TD SCH (10:27)
[2025-07-29 14:58] VITALS: BP 140/86; TEMP 98; O2SAT 100
[2025-07-29 19:46] VITALS: BP 157/79; TEMP 98.2; O2SAT 99
[2025-07-29] MEDS: MAGNESIUM OXIDE 400 MG TAB PO SCH (20:54)
[2025-07-30 03:36] VITALS: BP 135/72; TEMP 98; O2SAT 100
[2025-07-30] MEDS: VALPROIC ACID 250MG CAP PO SCH (09:33)
[2025-07-30 09:39] LABS: BASO # 0.0 10^3/uL (0.0-0.2); BASO % 0.4 % (0.0-1.0); EOS # 0.1 10^3/uL (0.0-0.5); EOS % 1.7 % (0.0-3.0); LYMPH # 1.9 10^3/uL (1.5-5.0); LYMPH % 26.0 % (24.0-44.0); MONO # 0.8 10^3/uL (0.0-0.8); MONO % 11.5 % (2.0-8.0); NEUTROPHILS # 4.3 10^3/uL (1.5-8.5); NEUTROPHILS % 59.3 % (36.0-66.0); PLATELET COUNT, AUTOMATED 191 10^3/uL (150-450)
[2025-07-30 09:57] LABS: CALCIUM LEVEL 9.4 MG/DL (8.5-10.1); CARBON DIOXIDE LEVEL 34 MMOL/L (20-31); CHLORIDE LEVEL 104 MMOL/L (98-107); CREATININE FOR GFR 1.10 MG/DL (0.70-1.30); GLOMERULAR FILTRATION RATE > 90.0 (>60); MAGNESIUM LEVEL 2.0 MG/DL (1.8-2.4); POTASSIUM SERUM 4.2 MMOL/L (3.5-5.1); SODIUM LEVEL 141 MMOL/L (136-145)
[2025-07-30 10:13] LABS: CPK CREATINE PHOSPHOKINASE 3665 U/L (46-171)
[2025-07-30 12:00] VITALS: BP 121/73; TEMP 98.4; O2SAT 99
[2025-07-30] MEDS ORDERED: VALP250S21 PO (13:22)
== END 2025-07-30 14:07 | disposition home or self-care (01) | DRG 351 ==
LOC: M ED 18:06 → EDBD 18:06 → M ED INP 18:07 → OBSVTOIN 23:59 → M MS4PR 07-28 01:50
PROVIDERS: ADMIT Student in an Organized Health Care Education/Training Program; ATTEND Student in an Organized Health Care Education/Training Program
PROC: B246ZZZ Ultrasonography of Right and Left Heart (ICD-10-PCS; principal; 2025-07-28)
DX: M62.82 Rhabdomyolysis (principal); E83.42 Hypomagnesemia; I10 Essential (primary) hypertension; I36.1 Nonrheumatic tricuspid (valve) insufficiency; R74.01 Elevation of levels of liver transaminase levels; G40.909 Epilepsy, unspecified, not intractable, without status epilepticus; F41.9 Anxiety disorder, unspecified; F17.200 Nicotine dependence, unspecified, uncomplicated; F12.90 Cannabis use, unspecified, uncomplicated; Z79.899 Other long term (current) drug therapy; Z71.51 Drug abuse counseling and surveillance of drug abuser; Z71.6 Tobacco abuse counseling

== ENCOUNTER 2025-07-31 00:19 | Emergency (ER) | payer OTHER ==
[~2025-07-31] VITALS: Ht 185.4 cm; Wt 66.8 kg
[~2025-07-31 00:19] MED LIST changes: +LEVE10003 PO; +VALP250S21 PO
[2025-07-31 00:36] VITALS: TEMP 98.4
[2025-07-31 01:11] LABS: BASO # 0.0 10^3/uL (0.0-0.2); BASO % 0.4 % (0.0-1.0); EOS # 0.1 10^3/uL (0.0-0.5); EOS % 1.1 % (0.0-3.0); LYMPH # 3.4 10^3/uL (1.5-5.0); LYMPH % 32.0 % (24.0-44.0); MONO # 1.0 10^3/uL (0.0-0.8); MONO % 9.2 % (2.0-8.0); NEUTROPHILS # 5.8 10^3/uL (1.5-8.5); NEUTROPHILS % 55.8 % (36.0-66.0); PLATELET COUNT, AUTOMATED 230 10^3/uL (150-450)
[2025-07-31 01:39] LABS: ALT/SGPT 70 U/L (7.0-40); AST/SGOT 111 U/L (<34); CALCIUM LEVEL 9.4 MG/DL (8.5-10.1); CARBON DIOXIDE LEVEL 30 MMOL/L (20-31); CHLORIDE LEVEL 100 MMOL/L (98-107); CREATININE FOR GFR 1.12 MG/DL (0.70-1.30); GLOMERULAR FILTRATION RATE > 90.0 (>60); MAGNESIUM LEVEL 2.0 MG/DL (1.8-2.4); PHOSPHORUS LEVEL 3.9 MG/DL (2.5-4.9); POTASSIUM SERUM 4.0 MMOL/L (3.5-5.1); SODIUM LEVEL 145 MMOL/L (136-145)
[2025-07-31] MEDS: KETOROLAC 30 MG/ML 1 ML VIAL IM ONE (04:06)
[2025-07-31] MEDS: levETIRAcetam INJection 1,000 MG in IV 1 EA IV ONE (04:07)
[2025-07-31] MEDS: NS (Normal Saline) 0.9% 1,000 ML IV ONE (04:07)
[2025-07-31 04:37] LABS: PLATELET COUNT, AUTOMATED 192 10^3/uL (150-450)
[2025-07-31 04:54] LABS: ETHYL ALCOHOL (ETHANOL) < 0.003 % (0.000-0.010)
[2025-07-31 04:55] LABS: VALPROIC ACID (DEPAKOTE) 80.2 UG/ML (50.0-100.0)
[2025-07-31 05:04] LABS: ALT/SGPT 59 U/L (7.0-40); AST/SGOT 89 U/L (<34); CALCIUM LEVEL 8.8 MG/DL (8.5-10.1); CARBON DIOXIDE LEVEL 29 MMOL/L (20-31); CHLORIDE LEVEL 103 MMOL/L (98-107); CREATININE FOR GFR 1.04 MG/DL (0.70-1.30); GLOMERULAR FILTRATION RATE > 90.0 (>60); POTASSIUM SERUM 4.1 MMOL/L (3.5-5.1); SODIUM LEVEL 138 MMOL/L (136-145)
[2025-07-31 06:00] VITALS: BP 126/77; O2SAT 96
== END 2025-07-31 06:43 | disposition home or self-care (01) ==
LOC: M ED 00:19
DX: G40.909 Epilepsy, unspecified, not intractable, without status epilepticus (principal); R00.0 Tachycardia, unspecified; I45.10 Unspecified right bundle-branch block; I45.81 Long QT syndrome; F88 Other disorders of psychological development; Z79.899 Other long term (current) drug therapy
CPT/HCPCS: 71046; 80047; 80048; 80053; 80076; 80164; 82077; 82140; 82330; 83605; 83735; 84100; 84484; 85025; 85027; 93005; 93041; 94760; 96365; 96366; 96372; 99285; J1885; J1953

== ENCOUNTER → 2025-08-08 | Outpatient (REF) | payer OTHER ==
[2025-08-08 13:55] LABS: ALT/SGPT 16.0 U/L (7.0-40); AST/SGOT 15.0 U/L (<34); CALCIUM LEVEL 9.5 MG/DL (8.5-10.1); CARBON DIOXIDE LEVEL 25.0 MMOL/L (20-31); CHLORIDE LEVEL 104.0 MMOL/L (98-107); CREATININE FOR GFR 1.24 MG/DL (0.70-1.30); GLOMERULAR FILTRATION RATE 81.7 (>60); MAGNESIUM LEVEL 2.0 MG/DL (1.8-2.4); POTASSIUM SERUM 4.7 MMOL/L (3.5-5.1); SODIUM LEVEL 143.0 MMOL/L (136-145)
[2025-08-08 13:57] LABS: CPK CREATINE PHOSPHOKINASE 179.0 U/L (46-171)
== END ==
LOC: M LAB REF 12:21
PROVIDERS: ATTEND Physician Assistant
DX: M62.82 Rhabdomyolysis (principal); R74.01 Elevation of levels of liver transaminase levels; E83.42 Hypomagnesemia

== ENCOUNTER 2025-09-07 18:06 | Emergency (ER) | payer OTHER ==
[~2025-09-07] VITALS: Ht 185.4 cm; Wt 70.1 kg
[2025-09-07] MEDS ORDERED: SERT25TA85 PO (18:28)
[2025-09-07 19:16] LABS: BASO # 0.0 10^3/uL (0.0-0.2); BASO % 0.6 % (0.0-1.0); EOS # 0.2 10^3/uL (0.0-0.5); EOS % 4.1 % (0.0-3.0); LYMPH # 1.3 10^3/uL (1.5-5.0); LYMPH % 25.1 % (24.0-44.0); MONO # 0.9 10^3/uL (0.0-0.8); MONO % 17.0 % (2.0-8.0); NEUTROPHILS # 2.7 10^3/uL (1.5-8.5); NEUTROPHILS % 51.5 % (36.0-66.0); PLATELET COUNT, AUTOMATED 112 10^3/uL (150-450)
[2025-09-07 19:41] LABS: ALT/SGPT < 9 U/L (7.0-40); AST/SGOT 18 U/L (<34); CALCIUM LEVEL 8.9 MG/DL (8.5-10.1); CARBON DIOXIDE LEVEL 28 MMOL/L (20-31); CHLORIDE LEVEL 104 MMOL/L (98-107); CREATININE FOR GFR 1.13 MG/DL (0.70-1.30); GLOMERULAR FILTRATION RATE > 90.0 (>60); POTASSIUM SERUM 4.2 MMOL/L (3.5-5.1); SODIUM LEVEL 143 MMOL/L (136-145)
[2025-09-07] MEDS: VALPROATE SOD INJ 1,000 MG in D5W 50 ML IV ONE (20:23)
[2025-09-08 00:06] VITALS: TEMP 98.5
[2025-09-08 02:51] VITALS: O2SAT 97
[2025-09-08 03:00] VITALS: BP 116/69
== END 2025-09-08 03:19 | disposition home or self-care (01) ==
LOC: EDBD 18:06 → M ED 18:06
DX: G40.909 Epilepsy, unspecified, not intractable, without status epilepticus (principal); Z91.199 Patient's noncompliance with other medical treatment and regimen due to unspecified reason; I45.10 Unspecified right bundle-branch block; I51.7 Cardiomegaly; F41.9 Anxiety disorder, unspecified; F12.10 Cannabis abuse, uncomplicated; F17.200 Nicotine dependence, unspecified, uncomplicated; Z79.899 Other long term (current) drug therapy
CPT/HCPCS: 70450; 80048; 80076; 80164; 80177; 85025; 93005; 94760; 96365; 96375; 99285; J2060

== ENCOUNTER → 2025-09-14 | Outpatient (REF) | payer OTHER ==
[~2025-09-14] MED LIST changes: +SERT25TA85 PO
== END ==
LOC: M LAB REF 12:08
PROVIDERS: ATTEND Physician Assistant
DX: R35.0 Frequency of micturition (principal)

== ENCOUNTER 2025-10-07 22:41 | Emergency (ER) | payer OTHER ==
[~2025-10-07] VITALS: Ht 182.9 cm; Wt 65.9 kg
[2025-10-08 00:15] LABS: BASO # 0.0 10^3/uL (0.0-0.2); BASO % 0.4 % (0.0-1.0); EOS # 0.1 10^3/uL (0.0-0.5); EOS % 1.4 % (0.0-3.0); LYMPH # 1.1 10^3/uL (1.5-5.0); LYMPH % 22.0 % (24.0-44.0); MONO # 0.8 10^3/uL (0.0-0.8); MONO % 16.3 % (2.0-8.0); NEUTROPHILS # 2.9 10^3/uL (1.5-8.5); NEUTROPHILS % 58.1 % (36.0-66.0); PLATELET COUNT, AUTOMATED 110 10^3/uL (150-450)
[2025-10-08 00:28] LABS: VALPROIC ACID (DEPAKOTE) 83.8 UG/ML (50.0-100.0)
[2025-10-08 00:30] LABS: ALT/SGPT < 9 U/L (7.0-40); AST/SGOT 15 U/L (<34); CALCIUM LEVEL 9.1 MG/DL (8.5-10.1); CARBON DIOXIDE LEVEL 29 MMOL/L (20-31); CHLORIDE LEVEL 104 MMOL/L (98-107); CREATININE FOR GFR 1.30 MG/DL (0.70-1.30); GLOMERULAR FILTRATION RATE 77.2 (>60); MAGNESIUM LEVEL 1.9 MG/DL (1.8-2.4); PHOSPHORUS LEVEL 4.0 MG/DL (2.5-4.9); POTASSIUM SERUM 4.2 MMOL/L (3.5-5.1); SODIUM LEVEL 142 MMOL/L (136-145)
[2025-10-08] MEDS: NS (Normal Saline) 0.9% 1,000 ML IV ONE (01:02)
[2025-10-08] MEDS: VALPROATE SOD INJ 1,000 MG in D5W 50 ML IV ONE (01:54)
[2025-10-08 02:42] LABS: AMPHETAMINES LEVEL URINE NEGATIVE (NEGATIVE); BARBITURATES URINE NEGATIVE (NEGATIVE); BENZODIAZEPINES URINE NEGATIVE (NEGATIVE); COCAINE METABOLITE URINE NEGATIVE (NEGATIVE); METHADONE URINE NEGATIVE (NEGATIVE); OPIATES URINE NEGATIVE (NEGATIVE); PHENCYCLIDINE URINE NEGATIVE (NEGATIVE)
[2025-10-08 02:43] LABS: CANNABINOIDS URINE POSITIVE (NEGATIVE)
[2025-10-08] MEDS ORDERED: ISOVUE-370 76% 100 ML VIAL As Ordered ONE (03:06)
[2025-10-08] MEDS: levETIRAcetam INJection 1,500 MG in IV 1 EA IV ONE (04:11)
[2025-10-08 04:50] LABS: ETHYL ALCOHOL (ETHANOL) < 0.003 % (0.000-0.010)
[2025-10-08] MEDS: ACETAMINOPHEN *IV* 1,000 MG in IV 1 EA IV ONE (06:32)
[2025-10-08 06:33] LABS: KETONE, URINE AUTO RFX NEGATIVE (NEGATIVE); LEUKOCYTE ESTERASE UR AUTO RFX NEGATIVE (NEGATIVE); MUCUS, URINE RFX SMALL (NEGATIVE); NITRITE, URINE AUTO RFX NEGATIVE (NEGATIVE); RBC, URINE AUTO RFX 0 /HPF (0-3); SQUAM EPITHELIAL CELL UR AURFX 0 /HPF (0-6); WBC, URINE AUTO RFX 0 /HPF (0-3)
[2025-10-08] MEDS ORDERED: LAMO-18 PO (07:45)
[2025-10-08 09:15] VITALS: BP 107/55; TEMP 100.2; O2SAT 97
[2025-10-08] MEDS: lamoTRIgine 25 MG TAB PO ONE (09:26)
== END 2025-10-08 09:59 | disposition home or self-care (01) ==
LOC: M ED 22:41
DX: G40.909 Epilepsy, unspecified, not intractable, without status epilepticus (principal); B34.8 Other viral infections of unspecified site; I49.40 Unspecified premature depolarization; I45.10 Unspecified right bundle-branch block; F39 Unspecified mood [affective] disorder; Z79.899 Other long term (current) drug therapy
CPT/HCPCS: 70450; 70496; 70498; 71045; 80048; 80076; 80164; 80307; 81001; 82077; 82140; 82330; 83605; 83735; 84100; 84145; 85025; 87040; 87486; 87581; 87633; 87798; 93005; 93041; 94760; 96361; 96374; 96375; 96376; 99285; J0134; J1953; J2060; Q9967

== ENCOUNTER 2025-10-09 23:28 | Emergency (ER) | payer OTHER ==
[~2025-10-09] VITALS: Ht 185.4 cm; Wt 68.2 kg
[~2025-10-09 23:28] MED LIST changes: +LAMO-18 PO
[2025-10-10] MEDS: NS (Normal Saline) 0.9% 1,000 ML IV ONE (00:21)
[2025-10-10 00:26] LABS: ETHYL ALCOHOL (ETHANOL) < 0.003 % (0.000-0.010)
[2025-10-10 00:27] LABS: VALPROIC ACID (DEPAKOTE) 104.9 UG/ML (50.0-100.0)
[2025-10-10 00:28] LABS: CALCIUM LEVEL 8.1 MG/DL (8.5-10.1); CARBON DIOXIDE LEVEL 29 MMOL/L (20-31); CHLORIDE LEVEL 104 MMOL/L (98-107); CREATININE FOR GFR 1.27 MG/DL (0.70-1.30); GLOMERULAR FILTRATION RATE 79.4 (>60); MAGNESIUM LEVEL 1.9 MG/DL (1.8-2.4); POTASSIUM SERUM 4.0 MMOL/L (3.5-5.1); SODIUM LEVEL 141 MMOL/L (136-145)
[2025-10-10 00:33] LABS: BASO # 0.0 10^3/uL (0.0-0.2); BASO % 0.3 % (0.0-1.0); EOS # 0.0 10^3/uL (0.0-0.5); EOS % 0.1 % (0.0-3.0); LYMPH # 1.7 10^3/uL (1.5-5.0); LYMPH % 22.0 % (24.0-44.0); MONO # 0.8 10^3/uL (0.0-0.8); MONO % 10.4 % (2.0-8.0); NEUTROPHILS # 5.0 10^3/uL (1.5-8.5); NEUTROPHILS % 66.5 % (36.0-66.0); PLATELET COUNT, AUTOMATED 132 10^3/uL (150-450)
[2025-10-10] MEDS: KETOROLAC 30 MG/ML 1 ML VIAL IV ONE (01:29)
[2025-10-10] MEDS: MAG SULF 1GM/100ML (MAG RUN) 1 GM in IV 1 EA IV ONE (01:30)
[2025-10-10] MEDS: ACETAMINOPHEN *IV* 1,000 MG in IV 1 EA IV ONE (01:30)
[2025-10-10 02:10] LABS: AMPHETAMINES LEVEL URINE NEGATIVE (NEGATIVE); BARBITURATES URINE NEGATIVE (NEGATIVE); BENZODIAZEPINES URINE NEGATIVE (NEGATIVE); COCAINE METABOLITE URINE NEGATIVE (NEGATIVE); METHADONE URINE NEGATIVE (NEGATIVE); OPIATES URINE NEGATIVE (NEGATIVE); PHENCYCLIDINE URINE NEGATIVE (NEGATIVE)
[2025-10-10 02:14] LABS: CANNABINOIDS URINE POSITIVE (NEGATIVE)
[2025-10-10] MEDS ORDERED: KEPP1TAB PO (02:29)
[2025-10-10] MEDS: levETIRAcetam INJection 500 MG in DEXTROSE 5% (D5W) MINI-BAG PLU 100 ML IV ONE (03:16)
[2025-10-10 06:22] VITALS: BP 106/72; O2SAT 100
[2025-10-10 06:23] VITALS: TEMP 97.7
== END 2025-10-10 06:30 | disposition home or self-care (01) ==
LOC: M ED 23:28
DX: R51.9 Headache, unspecified (principal); T42.5X5 Adverse effect of mixed antiepileptics; F41.9 Anxiety disorder, unspecified; R56.9 Unspecified convulsions; Z79.899 Other long term (current) drug therapy
CPT/HCPCS: 71045; 80048; 80164; 80175; 80307; 82077; 82330; 83605; 83735; 85025; 87486; 87581; 87633; 87798; 96361; 96365; 96368; 99285; J0134; J1885; J1953; J3475